=== PATIENT | female | born 1990 | race Caucasian/White ===

== ENCOUNTER 2016-08-16 13:29 | Outpatient (CLI) | payer OTHER | END 2016-08-16 13:30 | disposition home or self-care (01) | LOC: MADLABBHPM 13:29 | PROVIDERS: ATTEND Family Medicine | DX: Z34.83 Encounter for supervision of other normal pregnancy, third trimester (principal) | CPT/HCPCS: 36415; 87077; 87081; 87086; 87186 ==

== ENCOUNTER 2018-04-02 13:27 | Emergency (ER) | payer OTHER ==
[2018-04-02] MEDS ORDERED: Triple Antibiotic Oint 1 GM Packet ONE (15:15)
== END 2018-04-02 15:22 | disposition home or self-care (01) ==
LOC: MADERS 13:27
DX: H60.12 Cellulitis of left external ear (principal)
CPT/HCPCS: 69000

== ENCOUNTER 2018-07-01 07:27 | Emergency (ER) | payer OTHER ==
[2018-07-01] MEDS ORDERED: predniSONE 20 MG TAB ONE (08:05)
[2018-07-01] MEDS ORDERED: diphenhydrAMINE 25 MG CAP ONE (08:05)
== END 2018-07-01 08:16 | disposition home or self-care (01) ==
LOC: MADERS 07:27
DX: T78.40XA Allergy, unspecified, initial encounter (principal)
CPT/HCPCS: 99283; J7506

== ENCOUNTER 2018-09-23 13:21 | Emergency (ER) | payer OTHER ==
[2018-09-23] MEDS ORDERED: Cephalexin 500 MG CAP ONE (13:49)
[2018-09-23] MEDS ORDERED: Dexamethasone 4 MG TAB ONE (13:49)
== END 2018-09-23 14:22 | disposition home or self-care (01) ==
LOC: MADERS 13:21
DX: H05.012 Cellulitis of left orbit (principal)
CPT/HCPCS: 99283; J8540

== ENCOUNTER 2019-06-01 10:59 | Outpatient (CLI) | payer OTHER, SELFPAY | END 2019-06-01 11:00 | disposition home or self-care (01) | LOC: MADLABBHPM 10:59 | PROVIDERS: ATTEND Family Medicine | DX: Z34.83 Encounter for supervision of other normal pregnancy, third trimester (principal) | CPT/HCPCS: 36415; 82951; 82952 ==